=== PATIENT | male | born 1980 | race African-American/Black ===

== ENCOUNTER 2023-03-13 17:00 | Emergency (ER) | payer OTHER ==
[2023-03-13 17:18] VITALS: BP 121/81; PULSE 92; RESP 16; TEMP 98.2; BMI 29.6
[2023-03-13] MEDS ORDERED: DEXAMETHASONE SOD PHOSPHATE 10 MG/1 ML VIAL IM ONE (18:22)
[2023-03-13] MEDS ORDERED: DEXAMETHASONE SOD PHOSPHATE 10 MG/1 ML VIAL ONE (18:36)
[2023-03-13] MEDS ORDERED: CYCLOBENZAPRINE HCL 5 MG TABLET ONE (20:08)
[2023-03-14] MEDS ORDERED: CYCLOBENZAPRINE HCL 5 MG TABLET PO ONE (10:00)
== END 2023-03-13 20:31 | disposition home or self-care (01) ==
LOC: JER 17:00
PROC: 3E023GC Introduction of Other Therapeutic Substance into Muscle, Percutaneous Approach (ICD-10-PCS; principal; 2023-03-13)
DX: M25.511 Pain in right shoulder (principal); M60.9 Myositis, unspecified; R07.89 Other chest pain; M54.6 Pain in thoracic spine; R22.2 Localized swelling, mass and lump, trunk
CPT/HCPCS: 72125-TC; 99284-25; J1100